=== PATIENT | male | born 1990 | race African-American/Black ===

== ENCOUNTER 2023-06-24 19:52 | Emergency (ER) | payer OTHER ==
[2023-06-24] MEDS ORDERED: Lidocaine 1% (PF) 30 ML VIAL ONE (20:19)
[2023-06-24] MEDS ORDERED: Bacitracin 1 PK ONE (21:15)
== END 2023-06-24 21:20 ==
LOC: NAV ERS 19:52
DX: S61.411A Laceration without foreign body of right hand, initial encounter (principal); G40.909 Epilepsy, unspecified, not intractable, without status epilepticus; W26.8XXA Contact with other sharp object(s), not elsewhere classified, initial encounter; Y93.67 Activity, basketball; Y92.149 Unspecified place in prison as the place of occurrence of the external cause; Z79.899 Other long term (current) drug therapy
CPT/HCPCS: 12001; J2001